=== PATIENT | male | born 1995 | race Caucasian/White ===

== ENCOUNTER 2019-03-04 21:48 | Emergency (ER) | payer OTHER, SELFPAY ==
[2019-03-04 21:53] VITALS: BP 149/92; PULSE 96; RESP 16; TEMP 36.8; O2SAT 94
--- NOTE | 2019-03-04 22:06 | W.ED.GENAD ---
Discharge Plan Disposition Patient Disposition: HOME Condition: Good Discharge Details Chief Complaint: AnimalBite Clinical Impression: Dog bite of extremity Primary Care Provider: Renu Jordan ED Provider: Nish Manriquez Meds and New Rx's Prescriptions: New amoxicillin-pot clavulanate 875-125 mg tablet 1 tab PO BID Qty: 10 RF: 0 ibuprofen 600 mg tablet 600 mg PO TID-QID PRN (Reason: pain) Qty: 20 RF: 0 Discharge Instructions Instructions: Animal Bite (ED) Additional Instructions: X-ray is negative. Augmentin twice a day for 5 days. Keep the wound clean and dry. Keep covered. Watch for signs of infection which include increasing pain, swelling, redness, drainage. Return to ED if evidence of infection. Follow-up with primary care next week if does not appear to be healing appropriately. Referrals: Renu Jordan, BUSINESS MACHINE MECHANIC [Primary Care Provider] - Medical Decision Making Patient's tetanus is up-to-date according to him. He will be given Augmentin and Motrin. Will get x-ray to rule out retained tooth. Will have wound irrigated out and wrapped. Will not close the laceration as it is in an area of no cosmetic significance is relatively superficial and should be left open to drain. Wound irrigated and cleaned by nursing and dressed. X-ray negative for acute injury or foreign body. Home on Augmentin for 5 days. Good wound care. Return to ED if any sign of infection or problems. HPI General Mode of arrival: ambulatory. Date/Time Provider Initiated Documentation: 03/04/19 22:01. Limitations to Documentation: no limitations. Information obtained by: patient. 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 He was bitten by a Great Eben. The finance intern of the dog did show him papers and the dog is up-to-date on immunizations. Patient is sure his tetanus is less than 5 years. He has pain and swelling in the left wrist area. He has no numbness or change in range of motion of his hand. He has very small scratches on the right arm but nothing of significance. Related Data Home Medications Medication Instructions Recorded Confirmed amoxicillin-pot clavulanate 1 tab PO BID #10 tab 03/04/19 ibuprofen 600 mg PO TID-QID PRN #20 tab 03/04/19 Previous Rx's Medication Instructions Recorded amoxicillin-pot clavulanate 1 tab PO BID #10 tab 03/04/19 ibuprofen 600 mg PO TID-QID PRN #20 tab 03/04/19 Allergies Allergy/AdvReac Type Severity Reaction Status Date / Time No Known Allergies Allergy Unverified 10/20/15 16:49 General Stated Complaint: AnimalBite MARY: 3 Review of Systems Constitutional Denies weakness Musculoskeletal Reports limited range of motion (left wrist), Denies numbness and Denies tingling Integumentary/Breasts Reports wounds Neurologic Denies numbness, Denies tingling, Denies paresthesias and Denies weakness PFSH Surgical History S/P tonsillectomy (Resolved) Social History Smoking/Tobacco Use Status: Current every day Smokeless tobacco user: chewing tobacco Drug use: Never Exam Const General: cooperative, comfortable and no acute distress Orientation: alert and oriented x3 Skin Trauma: laceration (dorsal left wrist < 1 cm) and puncture Neuro General: alert, oriented x3, gait normal and no focal motor deficits Sensory Exam: no sensory deficits noted Extrem Other: Left wrist with puncture wound on the dorsal aspect and a laceration on the volar aspect. There is soft tissue swelling. There does not appear to be bony tenderness. There does not appear to be tendon or nerve injury as he has normal range of motion, strength, sensation in the hand. Course Vital Signs Temperature 98.3 F 03/04/19 21:53 Pulse 96 H 03/04/19 21:53 Respiratory Rate 16 03/04/19 21:53 Blood Pressure 149/92 H 03/04/19 21:53 Pulse Oximetry 94 L 03/04/19 21:53 Temperature 98.3 F 03/04/19 21:53 Temperature Source Temporal Artery Scan 03/04/19 21:53 Pulse 96 H 03/04/19 21:53 Respiratory Rate 16 03/04/19 21:53 Respiratory Effort Non-Labored 03/04/19 21:56 Blood Pressure 149/92 H 03/04/19 21:53 Pulse Oximetry 94 L 03/04/19 21:53 Oxygen Delivery Method Room Air 03/04/19 21:53 Oxygen Flow Rate 0 03/04/19 21:53 Pain Level 4 03/04/19 21:53
[2019-03-04] MEDS: Ibuprofen 600 MG TAB PO (22:19)
[2019-03-04] MEDS: Amoxicillin 875/Clav. 125 TAB PO (22:19)
--- NOTE | 2019-03-04 22:45 | DI.RAD_ITS ---
SYMPTOM/DIAGNOSIS: DOG BITE LEFT WRIST: Four views including navicular view were performed. No fracture or dislocation is seen. IMPRESSION: Negative left wrist.
--- NOTE | 2019-03-04 23:19 | DI.VRAD_ITS ---
EXAM: XR Left Wrist EXAM DATE/TIME: 03/04/2019 10:09 PM CLINICAL HISTORY: 23 years old, male; Pain; Wrist; Left; Patient HX: Animal bite TECHNIQUE: Imaging protocol: XR Left wrist. Views: 3 or more views. COMPARISON: No relevant prior studies available. FINDINGS: Bones/joints: Typical for age. No evidence of acute fracture. Soft tissues: Unremarkable. IMPRESSION: No acute findings. Dictated and Authenticated by: Mat Henry MD. Ordering:CONNOR Mock MD
--- NOTE | 2019-03-07 08:35 | NUR.NOTE ---
Message left on Lele Duvall [facility] Officer asking him to call back to receive animal bite information. [phone].Nursing Note:
--- NOTE | 2019-03-07 15:59 | NUR.NOTE ---
Lele Duvall returned phone call to get animal bite information, form faxed to [phone].Nursing Note:
== END 2019-03-04 23:25 | disposition home or self-care (01) ==
PROVIDERS: Emergency Provider Emergency Medicine; PCP Nurse Practitioner
DX: S61.552A Open bite of left wrist, initial encounter (principal); W54.0XXA Bitten by dog, initial encounter
CPT/HCPCS: 99283; 73110

== ENCOUNTER 2021-03-26 13:53 | Emergency (ER) | payer OTHER, SELFPAY ==
[2021-03-26 14:00] VITALS: BP 132/80; PULSE 89; RESP 16; TEMP 37; O2SAT 98
--- NOTE | 2021-03-26 14:11 | ED.GENADUL_ITS ---
Discharge Plan Disposition Patient Disposition: HOME Condition: Stable Discharge Details Clinical Impression: Acute lumbar myofascial strain Primary Care Provider: Renu Jordan ED Provider: Elisha Mendez Home Meds and New Rx's Prescriptions: New methocarbamol 500 mg tablet 500 mg PO Q6H PRN (Reason: muscle spasm) Qty: 14 RF: 0 ibuprofen 600 mg tablet 600 mg PO Q6H PRNQty: 20 RF: 0 Continued ibuprofen 600 mg tablet 600 mg PO TID-QID PRN (Reason: pain) Qty: 20 RF: 0 Discharge Instructions Instructions: Muscle Strain (ED), Low Back Strain (ED) Additional Instructions: Alternate ice and heat to the affected area(s) several times daily for 20 minutes at a time. Alternate tylenol and motrin as needed and directed for pain. Take the oxycodone for pain not relieved with Tylenol or Motrin. Your prescriptions has been sent electronically to your pharmacy. Call the [facility] to make sure your prescriptions ready before pickup. Take the prescriptions as directed. Follow-up with your primary care doctor or your Worker's Compensation physician in 1 week. Return to the emergency department with any worsening or new concerning symptoms. Stand Alone Forms: Work Release Discharge Data Discharge Physician: Elisha Mendez Medical Decision Making 25-year-old male who works for [employer] presents with lower back pain after lifting a 70 pound mattress today at work. No cauda equina symptoms. No relief with ibuprofen 3 hours ago. Patient appears uncomfortable. He has an antalgic gait. He has tenderness to palpation of the bilateral paraspinal and midline lumbar region. There is no step-off. No focal deficits. Neurovascular intact. Discussed with patient that suspect most likely lumbar strain. Discussed that he does have midline spinal tenderness but suspect this is likely muscular rather than a lumbar spine fracture which would be unusual in a young healthy male. Also do not suspect a disc herniation as he has no significant radiculopathy or focal deficits. We will give a dose of p.o. oxycodone and Valium here. We will send with a prescription for methocarbamol and ibuprofen in addition to a few tabs of oxycodone. Advised that he alternate ice and heat. Advised that he follow-up with Worker's Compensation for reevaluation and consideration for oral steroids, physical therapy if no relief or worsening. Advised that he may need lumbar spine imaging including x-rays or MRI if symptoms do not improve or worsen. Usual and customary return precautions given prior to discharge. Medical Records Medical records reviewed: Yes I reviewed the patient's medical records. HPI General Mode of arrival: ambulatory . Date/Time Provider Initiated Documentation: 03/26/21 14:11 . Limitations to Documentation: no limitations . Information obtained by: patient . HPI Narrative: Patient is a 25-year-old male who presents with lower back pain with radiation to his buttocks and thighs after lifting a 70 pound mattress at work at [employer] 3 hours ago. Patient states he tried to bend his knees but the mattress was an odd shape and he felt pain immediately upon lifting. He took 600 mg of ibuprofen without relief. He denies any bowel or bladder incontinence, saddle anesthesia, leg weakness or numbness. He states the pain is worse with moving, bending, walking and weightbearing. Related Data Home Medications Medication Instructions Recorded Confirmed ibuprofen 600 mg PO TID-QID PRN #20 tab 03/04/19 03/26/21 ibuprofen 600 mg PO Q6H PRN #20 tab 03/26/21 methocarbamol 500 mg PO Q6H PRN #14 tab 03/26/21 Previous Rx's Medication Instructions Recorded ibuprofen 600 mg PO TID-QID PRN #20 tab 03/04/19 ibuprofen 600 mg PO Q6H PRN #20 tab 03/26/21 methocarbamol 500 mg PO Q6H PRN #14 tab 03/26/21 Allergies Allergy/AdvReac Type Severity Reaction Status Date / Time No Known Allergies Allergy Unverified 03/26/21 14:03 General Stated Complaint: Nk/Back Pain MARY: 3 Review of Systems All systems reviewed & are unremarkable except as noted in HPI and below Constitutional Constitutional: Reports as per HPI, Denies chills and Denies fever(s) Eyes Eyes: Denies blurry vision ENT Ears, Nose, Mouth, and Throat: Denies dizziness, Denies sore throat and Denies throat swelling Cardiovascular Cardiovascular: Denies chest pain and Denies dyspnea Respiratory Respiratory: Denies cough and Denies dyspnea Gastrointestinal Gastrointestinal: Denies abdominal pain, Denies diarrhea and Denies vomiting Genitourinary Genitourinary: Denies hematuria and Denies dysuria Musculoskeletal Musculoskeletal: Reports back pain and Denies numbness Integumentary/Breasts Skin/Breast: Denies lesions and Denies rash Neurologic Neurologic: Denies dizziness, Denies localized weakness and Denies numbness Allergic/Immunologic Allergic/Immunologic: Denies throat swelling [facility] Surgical History (Updated 03/04/19 @ 22:07 by Nish Manriquez MD) S/P tonsillectomy Social History (Updated 03/04/19 @ 22:07 by Nish Manriquez MD) Smoking/Tobacco Use Status: Current every day Tobacco Type: cigarettes Smokeless tobacco user: chewing tobacco Smoking risk assessment performed?: Yes Drug use: Never Substance use type: does not use Do you feel safe at home: Yes Do you feel safe in your relationship?: Yes Exam Const General: cooperative and no acute distress HENMT Head: normal to inspection Face and sinus: normal facial exam Eyes General: appearance normal, both eyes and all related structures EOM: EOM intact bilaterally Neck Neck: normal visual inspection and No submandibular swelling Lymphatic: no lymphadenopathy noted Chest Chest: normal inspection of the chest and no tenderness Resp Effort & Inspection: normal respiratory effort and able to speak in complete sentences Auscultation: clear to auscultation bilaterally Cardio Rate: regular rate Rhythm: regular rhythm GI Inspection: normal to inspection Palpation: soft, not firm, not rigid and nontender Auscultation: normal bowel sounds Back/Spine/Pelvis Thoracic/Lumbar Spine: thoracic and lumbar spine normal to inspection, straight leg raise negative bilaterally, paraspinal tenderness (b/l lumbar) and lumbar spinal tenderness Skin General skin exam: no rashes or lesions noted Neuro General: patient alert, patient awake and patient oriented x3 Cognition: normal cognition Speech: speech normal Motor: muscle tone normal throughout and strength 5/5 throughout Sensory Exam: no sensory deficits noted DTR's: Rt Patellar: 1+, Lt Patellar: 1+, Rt Ankle: 1+ and Lt Ankle: 1+ Plantar Reflexes: Equivocal: bilateral (negative babinski b/l ) Extrem General: normal to inspection, full ROM, capillary refill normal, no calf tenderness bilaterally and no edema Other: Bilateral DP/PT pulses intact. Psych Appearance: grossly normal Mental Status: mental status grossly normal Speech and Movement: speech and movement normal Affect: normal affect Course Vital Signs Vital signs: Vital Signs Temperature 98.6 F 03/26/21 14:00 Pulse 89 03/26/21 14:00 Respiratory Rate 16 03/26/21 14:00 Blood Pressure 132/80 03/26/21 14:00 Pulse Oximetry 98 03/26/21 14:00 Temperature 98.6 F 03/26/21 14:00 Temperature Source Skin 03/26/21 14:00 Pulse 89 03/26/21 14:00 Respiratory Rate 16 03/26/21 14:00 Respiratory Effort Non-Labored 03/26/21 14:00 Blood Pressure 132/80 03/26/21 14:00 Blood Pressure Position Sitting 03/26/21 14:00 Pulse Oximetry 98 03/26/21 14:00 Oxygen Delivery Method Room Air 03/26/21 14:00 Oxygen Flow Rate 0 03/26/21 14:00 Pain Level 10 03/26/21 14:06
[2021-03-26] MEDS: diazePAM 5 MG TAB PO (15:30)
[2021-03-26] MEDS: oxyCODONE 5 MG TAB PO (15:30)
== END 2021-03-26 15:55 | disposition home or self-care (01) ==
PROVIDERS: Emergency Provider Physician Assistant; PCP Nurse Practitioner
DX: S39.012A Strain of muscle, fascia and tendon of lower back, initial encounter (principal); X50.0XXA Overexertion from strenuous movement or load, initial encounter; Y99.0 Civilian activity done for income or pay
CPT/HCPCS: 99283

== ENCOUNTER 2021-08-13 01:21 | Outpatient (CLI) | payer OTHER, SELFPAY ==
--- NOTE | 2021-08-13 07:00 | DI.MRI_ITS ---
Exam(s) MR LUMBAR SPINE WO EXAM: MR LUMBAR SPINE WO INDICATION: Radicular lumbar pain 3 months duration,lumbar back pain, m54.16. COMPARISON: No exams were available for comparison TECHNIQUE: MR examination of the lumbosacral spine was performed according to the usual protocol. FINDINGS: No significant bony signal abnormality is seen. Intervertebral discs show normal signal. No signifi cant facet arthropathy identified. The conus medullaris appears intact. There is no evidence of a central canal spinal stenosis, or neural foraminal stenosis, in the lumbar region. There is a small to moderate-sized central disc herniation at L5-S1 which is central/left paracentral . This may impinge the left S1 nerve root. No other disc herniation identified in the lumbar region. IMPRESSION: Central/left paracentral disc herniation at L5-S1, possible left S1 nerve root impingement. No other significant findings.
== END 2021-08-13 01:41 ==
PROVIDERS: PCP Nurse Practitioner Acute Care; Visit Provider Nurse Practitioner Family
DX: M54.16 Radiculopathy, lumbar region (principal); M51.87 Other intervertebral disc disorders, lumbosacral region
CPT/HCPCS: 72148

== ENCOUNTER 2022-02-05 08:11 | Outpatient (CLI) | payer OTHER, SELFPAY ==
--- NOTE | 2022-02-05 06:00 | DI.RAD_ITS ---
Exam(s) XR PAIN CLINIC LUMBAR SP 2V EXAM: XR PAIN CLINIC LUMBAR SP 2V CLINICAL HISTORY: DX: Lumbar Radiculopathy TECHNIQUE: 2D and realtime digital imaging was performed. Radiologist not present. CONTRAST MATERIAL: None. COMPARISON: No exams were available for comparison FINDINGS: Fluoroscopy was provided for pain management therapy. Please refer to procedure report or details. Cumulative dose: Ka,r=41.7 mGy IMPRESSION: RADIATION DOSE DELIVERED:
[2022-02-05 08:29] VITALS: BP 131/77; PULSE 76; RESP 20; TEMP 36.9; O2SAT 95
--- NOTE | 2022-02-05 09:19 | PDOC.PAIN_ITS ---
Pain Clinic Procedure Note Procedure Note Procedure Note: LUMBAR / SACRAL TRANSFORAMINAL INJECTION Adarsh Cho has been referred to the [facility] for a transforaminal nerve root block and steroid injection. COMMENTS: I previously evaluated him in the clinic on 01/16/22. DX: Lumbosacral radiculopathy Pre-procedure VAS: 3/10. Patient was interviewed and the medical record reviewed. There were no medical, pharmacologic, radiographic or other structural contraindications to attempting fluoroscopically guided transforaminal nerve root block and epidural steroid injection. Risks and expected side effects as well as potential benefit of the procedure were reviewed and voiced concerns addressed. The printed consent form was signed and witnessed. Standard time-out procedure was performed. Patient was placed in the prone position on the fluoroscopy table and automated blood pressure cuff and pulse oximeter applied. Fluoroscopy was utilized to identify the left S1 neural foramen. A skin hugo was made for the needle insertion site. A Chlorhexadine prep was carried out, and sterile drapes were applied. Local anesthesia was achieved in the skin and subcutaneous tissues. A 22 gauge 5 spinal needle was then inserted, advanced with fluoroscopic guidance into the neural foramen, confirmed on the lateral view. After negative aspiration, 2 ml of Omnipaque 240 was injected confirming position in A/P and lateral views. This showed a good spread of dye transforaminally into the epidural space. There was no vascular update with contrast injection under continuous fluoroscopy and digital substraction. 15 mg of Dexamethasone was injected, followed by 0.5 ml of 1% Xylocaine flush for the nerve root block, as well. There was no unusual discomfort expressed.The needle was withdrawn. The patient tolerated the procedure well. A Band-Aid was applied. Vital signs were stable throughout the procedure and were as recorded in nursing records. If given, dosages of intravenous drugs for anxiolysis and analgesia were documented in nursing records. Follow up plans and appointments were discussed. Post procedure instruction was given as documented in nursing records and patient was discharged in the care of an identified haul driver. COMMENTS:Post-procedure pain VAS 3/10. Sagar Bradshaw DO, MPH [facility]-Pain Management [facility]-Center for Pain Management CC: Dean Almazan
[2022-02-05] MEDS: Dexamethasone Sod. Phos./Pres-Free 10 MG/ML VIAL IJ (09:30)
[2022-02-05 09:31] VITALS: BP 113/83; PULSE 76; RESP 21; O2SAT 97
[2022-02-05] MEDS: Omnipaque 240 MG/ML 50 ML BTL IJ (09:31)
== END 2022-02-05 08:12 | disposition home or self-care (01) ==
PROVIDERS: PCP Nurse Practitioner Acute Care; Visit Provider Preventive Medicine Occupational Medicine
DX: M54.17 Radiculopathy, lumbosacral region (principal)
CPT/HCPCS: 64483; 72100; Q9967

== ENCOUNTER 2023-02-02 01:21 | Outpatient (CLI) | payer OTHER, SELFPAY ==
--- NOTE | 2023-02-02 08:00 | DI.MRI_ITS ---
Exam(s) MR LUMBAR SPINE WO EXAM: MR LUMBAR SPINE WO CLINICAL HISTORY: Persistent, severe pain,RADICULOPATHY,INTERVERTEBRAL DISC DISPLACEMENT. TECHNIQUE: Multiplanar multisequence MRI of the Lumbar spine was performed. COMPARISON: MR MR LUMBAR SPINE WO from 08/13/2021 FINDINGS: Bones: The last intervertebral disc space is designated the L5/S1 level for the numbering purpose of this examination. The vertebral body heights are well maintained. Alignment is satisfactory. The ma rrow signal characteristics are unremarkable. Cord: The conus tip ends at the T12 level. It is of normal size and signal intensity. T11-12: Tiny central disc protrusion seen on sagittal sequences. T12-L1: No disc herniations or bulges are present. No central spinal canal or neural foraminal stenos is. L1-2: No disc herniations or bulges are present. No central spinal canal or neural foraminal stenosis . L2-3: No disc herniations or bulges are present. No central spinal canal or neural foraminal stenosis . L3-4: No disc herniations or bulges are present. No central spinal canal or neural foraminal stenosis . L4-5: No disc herniations or bulges are present. No central spinal canal or neural foraminal stenosis . L5-S1: Stable appearance is small disc protrusions slightly eccentric toward the left with possible l eft S1 nerve root impingement. No central spinal canal or neural foraminal stenosis. The visualized SI joints and sacrum are well maintained. Soft tissues: The paraspinal soft tissues are unremarkable. IMPRESSION: Stable appearance of small disc protrusion L5-S1. New tiny central disc protrusion at T11-12. This does not appear to contact the anterior cord. DATA REPOSITORY:
== END 2023-02-02 01:41 ==
LOC: DI 01:21
PROVIDERS: PCP Nurse Practitioner Acute Care; Visit Provider Nurse Practitioner Family
DX: M51.26 Other intervertebral disc displacement, lumbar region (principal); M54.16 Radiculopathy, lumbar region
CPT/HCPCS: 72148

== ENCOUNTER 2023-03-02 02:34 | Outpatient (CLI) | payer OTHER, SELFPAY ==
--- NOTE | 2023-03-02 07:45 | DI.RAD_ITS ---
Exam(s) XR CERVICAL SPINE COMP 4-5V EXAM: XR CERVICAL SPINE COMP 4-5V CLINICAL HISTORY: Dysesthesia bilateral arms to fingers - intermitENT,RADICULOPATHY,M54.12. TECHNIQUE: 2D digital imaging was performed. COMPARISON: No exams were available for comparison FINDINGS: Five views No evidence of fracture, listhesis, nor offset of the spinal laminar line. No disc space narrowing. On the oblique views there are no Luschka joint osteophytes evident. There are no cervical ribs. N o significant facet arthropathy evident. No prevertebral soft tissue swelling. Bone density normal. No osseous lesions. IMPRESSION: No significant radiographic findings on these views of the cervical spine. DATA REPOSITORY: RADIATION DOSE DELIVERED:
== END 2023-03-02 02:54 ==
LOC: DI 02:34
PROVIDERS: PCP Nurse Practitioner Acute Care; Visit Provider Nurse Practitioner Family
DX: M54.12 Radiculopathy, cervical region (principal)
CPT/HCPCS: 72050

== ENCOUNTER → 2023-10-01 02:35 | Outpatient (CLI) | payer OTHER, SELFPAY ==
--- NOTE | 2023-10-01 10:31 | DI.RAD_ITS ---
Exam(s) XR LUMBAR SPINE FLEX/EXT ONLY EXAM: XR LUMBAR SPINE FLEX/EXT ONLY CLINICAL HISTORY: LUMBAR DISC DISEASE M51.9 LUMBAR BACK PAIN M54.16 BILAT ARM PAIN M79.601. TECHNIQUE: 2D digital imaging was performed. COMPARISON: MR MR LUMBAR SPINE WO from 02/02/2023 FINDINGS: 3 views No evidence of fracture nor disc space narrowing. Flexion extension does not elicit a listhesis and there are no pars defects evident. Bone density normal. No osseous lesions. IMPRESSION: No significant osseous findings. However, please note that MRI scan of 02/02/2023 did reveal disc he rniation at L5-S1 level. Please see that report. DATA REPOSITORY: RADIATION DOSE DELIVERED:
== END ==
PROVIDERS: PCP Nurse Practitioner Acute Care; Visit Provider Physician Assistant Medical
DX: M51.26 Other intervertebral disc displacement, lumbar region (principal)
CPT/HCPCS: 72120

== ENCOUNTER 2025-02-22 01:07 | Outpatient (CLI) | payer OTHER, SELFPAY ==
--- NOTE | 2025-02-22 06:45 | DI.MRI_ITS ---
Exam(s) MR LUMBAR SPINE WO EXAM: MR LUMBAR SPINE WO CLINICAL HISTORY: Persistent pain post lifting injury,lumbar disc herniation,m51.26. TECHNIQUE: Multiplanar multisequence MRI of the Lumbar spine was performed. COMPARISON: MR MR LUMBAR SPINE WO from 02/02/2023 CR XR LUMBAR SPINE FLEX/EXT ONLY from 10/01/2023 FINDINGS: Bones: The last intervertebral disc space is designated the L5/S1 level for the numbering purpose of this examination. The vertebral body heights are well maintained. Alignment is satisfactory. There is a small hemangioma in the L4 vertebral body. Cord: The conus tip ends at the T12 level. It is of normal size and signal intensity. T12-L1: No disc herniations or bulges are present. No central spinal canal or neural foraminal stenos is. L1-2: No disc herniations or bulges are present. No central spinal canal or neural foraminal stenosis . L2-3: No disc herniations or bulges are present. No central spinal canal or neural foraminal stenosis . L3-4: No disc herniations or bulges are present. No central spinal canal or neural foraminal stenosis . L4-5: No disc herniations or bulges are present. No central spinal canal or neural foraminal stenosis . L5-S1: There is a stable small central disc herniation. There is a mild compression upon the left S1 nerve root. This is all unchanged. No central spinal canal stenosis is seen. There is no neural f oraminal stenosis. Soft tissues: The visualized SI joints and sacrum are well maintained. The paraspinal soft tissues ar e unremarkable. Note is again made of a small disc herniation at T11-T12. IMPRESSION: 1. Stable appearance of the lumbar spine with a central disc herniation at L5-S1 causing mild april ariadna on the left S1 nerve root. 2. No significant central spinal canal or neural foraminal stenosis is seen in the lumbar spine. 3. Stable tiny disc herniation at T11-T12. DATA REPOSITORY:
== END 2025-02-22 01:27 ==
PROVIDERS: PCP Nurse Practitioner Acute Care; Visit Provider Nurse Practitioner Family
DX: M51.26 Other intervertebral disc displacement, lumbar region (principal)
CPT/HCPCS: 72148